=== PATIENT | female | born 2000 | race Caucasian/White ===

== ENCOUNTER 2025-01-31 15:20 | Emergency (ER) | payer SELFPAY ==
[2025-01-31] VITALS (29 sets, daily range): BP systolic 100–123; BP diastolic 72–90; PULSE 34–99; RESP 15; TEMP 36.4; O2SAT 86–100
--- NOTE | 2025-01-31 15:45 | DI.CT_ITS ---
Exam(s) CT ABDOMEN PELVIS W EXAM: CT ABDOMEN PELVIS W CLINICAL HISTORY: RUQ abd pain. TECHNIQUE: Imaging Protocol: Axial computed tomography images with coronal and sagittal reformatted images were created and reviewed CONTRAST MATERIAL: Intravenous: Omnipaque 350 Contrast volume:75 ml Oral: no COMPARISON: No exams were available for comparison FINDINGS: ABDOMEN and PELVIS: Lung Bases: No acute findings. Liver: Normal density. No suspicious mass. Gallbladder and biliary tract: No radiodense calculus. No wall thickening or pericholecystic fluid. No biliary dilation. Pancreas: Normal density. No abnormal calcifications or inflammatory process. No evidence of mass. Spleen: Normal. Kidneys: Normal size, contour and axis. No radiodense stones. No obstructive uropathy. No suspicious masses seen. Adrenal glands: No masses seen. Vasculature: Abdominal aorta non-dilated. Soft tissues: Unremarkable. Bladder: No gross wall thickening. No calculi.No focal mass. Bowel: No obstruction. No bowel wall thickening. Normal quantity of stool peer the appendix is not seen. There are surgical clips near the base of the cecum which may be the related to prior appendectomy. Surgical history correlation recommended. Peritoneal cavity: No ascites. No focal collection. No mesenteric inflammatory response. No free air. Bones: Unremarkable for age. Reproductive organs: Unremarkable. Lymph nodes: No pathologically enlarged lymph nodes. IMPRESSION:: No acute abnormality in the abdomen or pelvis. RADIATION DOSE DELIVERED: Total DLP DATA REPOSITORY: All CT scans at this facility are submitted to the National Radiology Data Registry (NRDR) Dose Index Registry (DIR) with the [employer] (ACR). RADIATION OPTIMIZATION: All CT scans at this facility use at least one of these dose optimization techniques: automated exposure control; mA and/or kV adjustment per patient size (includes targeted exams where dose is matched to clinical indication); or iterative reconstruction.
[2025-01-31 15:51] LABS: Glucose Negative (Negative)
--- NOTE | 2025-01-31 15:55 | W.ED.GENAD ---
Discharge Plan Disposition Patient Disposition: Home Condition: Stable Discharge Details Clinical Impression: Abdominal pain, RUQ Primary Care Provider: Lissa Nettles ED Provider: Aury Monroy Home Meds and New Rx's Prescriptions: New sucralfate [Carafate] 100 mg/mL suspension 10 ml PO QACHS PRN (Reason: stomach upset) 7 Days Qty: 414 0RF Rx Instructions: Take 10 mils before meals and at bedtime as needed for stomach upset. No Action L norgest/e.estradiol-e.estrad [Ashlyna] 0.15 mg-30 mcg (84)/10 mcg (7) tablets,dose pack,3 month 1 tab PO DAILY Discharge Instructions Instructions: Abdominal Pain, Adult ED, Nausea and Vomiting, Adult ED Additional Instructions: At this time no evidence of gallbladder infection, no gallstones no obstruction, no evidence of UTI. Please take the prescribed medication as directed. You may take [id number] antacid or similar. Follow up with primary care provider in 3-5 days. Return to ED sooner if any worsening abdominal pain, continuing to vomit despite medications, fever or chills vomiting blood or concerns. Thank you for allowing us to care for you today. Referrals: Lissa Nettles [Primary Care Provider, Medicine] - 3 days Discharge Data Discharge Date/Time-TO BE ENTERED AT DEPARTURE: 01/31/25 18:35 HPI General Mode of arrival: ambulatory. Date/Time Provider Initiated Documentation: 01/31/25 15:37. Limitations to Documentation: no limitations. Information obtained by: patient, RN notes reviewed and old records reviewed. HPI Narrative: 24-year-old female presents to the ER with a chief complaint of right upper quadrant abdominal pain which has been ongoing for at least a week. Was seen at [facility] probably 7 days ago and had labs done at that time which were normal. She reports continued pain, intermittent chills and nausea however she was given some nausea medication by [facility] which seems to be helping. Only surgical history is appendectomy. Denies any other associated symptoms or concerns. Patient last ate around 1:00pm. She reports she ate a sandwich. Related Data Home Medications ?Medication ?Instructions ?Recorded ?Confirmed L norgest/E estradiol-E estrad 1 tab PO DAILY 01/31/25 01/31/25 0.15 mg-30 mcg (84)/10 mcg(7) tabs,3mos (Ashlyna) sucralfate 100 mg/mL oral 10 ml PO QACHS PRN stomach upset 7 01/31/25 suspension (Carafate) days #414 mL Previous Rx's ?Medication ?Instructions ?Recorded sucralfate 100 mg/mL oral 10 ml PO QACHS PRN stomach upset 7 01/31/25 suspension (Carafate) days #414 mL Allergies Allergy/AdvReac Type Severity Reaction Status Date / Time No Known Allergies Allergy Unverified 01/31/25 15:26 General Stated Complaint: Abd Prob ALBERTO: 3 Review of Systems All systems reviewed & are unremarkable except as noted in HPI and below Gastrointestinal Gastrointestinal: Reports as per HPI, Reports abdominal pain, Reports nausea and Reports vomiting Exam Narrative Exam Narrative: Constitutional: Alert and oriented x3. Appears stated age. Normal body habitus. Head: Normocephalic, no trauma. Eyes: Pupils PERRL, Red reflex noted, EOM's intact. Eyelids symmetrical without lesions, discharge, or swelling. ENT: Bilateral TM's WNL, External ear normal to inspection, no mastoid TTP, swelling, or erythema, Nasal turbinates WNL, no nasal discharge. Normal dentition, Posterior pharynx WNL, no exudate. Chest: RRR, Normal S1, S2, distal pulses intact. Resp: Lungs clear to auscultation bilaterally, no wheezes, rales, or rhonchi. Abdomen: Right upper quadrant tenderness with palpation, positive Leos sign. Soft, non-distended, Normoactive bowel sounds all 4 quads. Musculoskeletal: Normal gait, Moves all 4 extremities without difficulty. Skin: No suspicious rashes or lesions. Capillary refill less than 2 sec. Neurologic: Cranial nerves II-XII intact. Alert and oriented x 3. Motor: No deficits noted. Sensory: Intact bilaterally all 4 extremities. Hematologic/Lymphatic: No ecchymosis, no lymphadenopathy. Course Vital Signs Vital signs: Vital Signs Temperature 36.4 C L 01/31/25 15:22 Pulse 93 H 01/31/25 15:22 Respiratory Rate 15 01/31/25 15:22 Blood Pressure 118/83 01/31/25 15:22 Pulse Oximetry 98 01/31/25 15:22 Temperature 36.4 C L 01/31/25 15:25 Temperature Source Temporal Artery Scan 01/31/25 15:25 Pulse 93 H 01/31/25 15:25 Respiratory Rate 15 01/31/25 15:25 Blood Pressure 118/83 01/31/25 15:25 Blood Pressure Position Sitting 01/31/25 15:25 Pulse Oximetry 98 01/31/25 15:25 Oxygen Delivery Method Room Air 01/31/25 15:25 Oxygen Flow Rate 0 01/31/25 15:25 Pain Level 5 01/31/25 15:25 Comment This morning was 7-8 on the pain scale 01/31/25 15:25 Lab/Test Results Lab/Test Results: Laboratory Tests Range/Units 01/31/25 15:33 Urine Color (Yellow) Yellow Urine Clarity (Clear) Clear Urine pH (5-8) 7.0 Ur Specific [place] (1.005-1.025) 1.025 Urine Protein (Neg-Trace) mg/dL Negative Urine Ketones (Negative) mg/dL Negative Urine Blood (Negative) Small H Urine Nitrite (Negative) Negative Urine Bilirubin (Negative) Negative Urine Urobilinogen (Up to 0.2) mg/dL 1.0 H Ur Leukocyte Esterase (Negative) Negative Urine Glucose (Negative) mg/dL Negative POC- Test(urine) Negative Medical Decision Making 24-year-old female presents to the ER with a chief complaint of right upper quadrant abdominal pain which has been ongoing for at least a week. Was seen at [facility] probably 7 days ago and had labs done at that time which were normal. She reports continued pain, intermittent chills and nausea however she was given some nausea medication by [facility] which seems to be helping. Only surgical history is appendectomy. Denies any other associated symptoms or concerns. Patient last ate around 1:00pm. She reports she ate a sandwich. Ordered including CBC CMP lipase urinalysis, urine POC is negative. CT abdomen pelvis with IV contrast. Differential diagnosis includes not limited to cholecystitis, gallstones, hepatitis, gastroenteritis, GERD. CT shows no acute abnormalities no free air no evidence of cholecystitis or obstruction. No leukocytosis, no left shift CMP within normal limits, no evidence of UTI. Will plan for discharge with a prescription for Carafate and Follow up. This text was generated using Is That Oddation system, please disregard any oddities of phrase or misspellings. Medical Records Medical records reviewed: Yes I reviewed the patient's medical records. Imaging Data Radiologic Study: Imaging: CT Scan Radiologist's impression: Exam(s) a CT:CT abdomen & pelvis w Exam(s) CT ABDOMEN PELVIS W EXAM: CT ABDOMEN PELVIS W CLINICAL HISTORY: RUQ abd pain. TECHNIQUE: Imaging Protocol: Axial computed tomography images with coronal and sagittal reformatted images were created and reviewed CONTRAST MATERIAL: Intravenous: Omnipaque 350 Contrast volume:75 ml Oral: no COMPARISON: No exams were available for comparison FINDINGS: ABDOMEN and PELVIS: Lung Bases: No acute findings. Liver: Normal density. No suspicious mass. Gallbladder and biliary tract: No radiodense calculus. No wall thickening or pericholecystic fluid. No biliary dilation. Pancreas: Normal density. No abnormal calcifications or inflammatory process. No evidence of mass. Spleen: Normal. Kidneys: Normal size, contour and axis. No radiodense stones. No obstructive uropathy. No suspicious masses seen. Adrenal glands: No masses seen. Vasculature: Abdominal aorta non-dilated. Soft tissues: Unremarkable. Bladder: No gross wall thickening. No calculi.No focal mass. Bowel: No obstruction. No bowel wall thickening. Normal quantity of stool peer the appendix is not seen. There are surgical clips near the base of the cecum which may be the related to prior appendectomy. Surgical history correlation recommended. Peritoneal cavity: No ascites. No focal collection. No mesenteric inflammatory response. No free air. Bones: Unremarkable for age. Reproductive organs: Unremarkable. Lymph nodes: No pathologically enlarged lymph nodes. IMPRESSION:: No acute abnormality in the abdomen or pelvis. Lab Data Lab results reviewed: Yes I reviewed the patient's lab results. Labs: Laboratory Tests Range/Units 01/31/25 01/31/25 15:33 16:06 WBC (4.4-10.8) 10^3/uL 6.29 RBC (3.93-5.22) 10^6/uL 5.00 Hgb (11.2-15.7) g/dL 15.1 Hct (36.0-46.0) % 45.2 MCV (80-95) fL 90 MCH (27.0-33.0) pg 30.2 MCHC (32.0-36.0) % 33.4 RDW (11.7-14.6) % 12.1 Plt Count (130-400) 10^3/uL 342 MPV (8.0-11.0) fL 9.0 Immature Gran % % 0.2 Neutrophils % % 58.0 Lymphocytes % % 34.0 Monocytes % % 6.4 Eosinophils % % 1.1 Basophils % % 0.3 Nucleated RBC % (0.0-0.3) % 0.0 Absolute Neutrophils (1.2-6.7) 10^3/uL 3.65 Absolute Lymphocytes (1.2-3.4) 10^3/uL 2.14 Absolute Monocytes (0.1-0.8) 10^3/uL 0.40 Absolute Eosinophils (0.0-0.7) 10^3/uL 0.07 Absolute Basophils (0.0-0.2) 10^3/uL 0.02 Sodium (136-145) mmol/L 143 Potassium (3.5-5.1) mmol/L 3.8 Chloride (98-107) mmol/L 106 Carbon Dioxide (21.0-32.0) mmol/L 28.6 Anion Gap (3-11) mmol/L 8.4 BUN (7-18) mg/dL 10 Creatinine (0.55-1.02) mg/dL 0.8 Est GFR (CKD-EPI 2020) (mL/min/1.73m2) 106.77 Glucose (74-106) mg/dL 92 Calcium (8.5-10.1) mg/dL 9.3 Magnesium (1.8-2.4) mg/dL 2.2 Total Bilirubin (0.2-1.0) mg/dL 0.2 AST (15-37) U/L 17 ALT (14-59) U/L 23 Alkaline Phosphatase (46-116) U/L 57 Total Protein (6.4-8.2) g/dL 7.8 Albumin (3.4-5.0) g/dL 4.0 Lipase (<78) U/L 39 Urine Color (Yellow) Yellow Urine Clarity (Clear) Clear Urine pH (5-8) 7.0 Ur Specific [place] (1.005-1.025) 1.025 Urine Protein (Neg-Trace) mg/dL Negative Urine Ketones (Negative) mg/dL Negative Urine Blood (Negative) Small H Urine Nitrite (Negative) Negative Urine Bilirubin (Negative) Negative Urine Urobilinogen (Up to 0.2) mg/dL 1.0 H Ur Leukocyte Esterase (Negative) Negative Urine RBC (0-2) HPF 3-5 H Urine WBC (0-5) HPF Negative Ur Epithelial Cells (Negative) HPF Rare Urine Crystals (Negative) HPF Negative Urine Bacteria (Negative) HPF Few Urine Casts (Negative) LPF Negative Urine Mucus (Negative) Negative Ur Culture Indicated? No Urine Glucose (Negative) mg/dL Negative PFSH All Active Problems (Updated 01/31/25 @ 17:44 by Aury Monroy NP) Abdominal pain, RUQ (Acute) Social History Smoking/Tobacco Use Status: Never Smoking risk assessment performed?: Yes Alcohol Intake: current Alcohol Intake frequency: holidays/special occasions only Drug use: Never Substance use type: does not use Housing: apartment
[2025-01-31] MEDS: Ondansetron 4 MG/2 ML VIAL 2 MG IVP (16:00)
[2025-01-31 16:01] LABS: C & S Indicated? No; WBC Negative HPF (0-5)
[2025-01-31] MEDS: MORPHine 10 MG/ML VIAL 2 MG IVP (16:01)
[2025-01-31 16:19] LABS: Abs Immature Grans 0.01 10^3/uL (0.0-0.06); HCT 45.2 % (36.0-46.0); HGB 15.1 g/dL (11.2-15.7); Immature Grans % 0.2 %; MCH 30.2 pg (27.0-33.0); MCHC 33.4 % (32.0-36.0); MCV 90 fL (80-95); MPV 9.0 fL (8.0-11.0); Platelet Count 342 10^3/uL (130-400); RBC 5.00 10^6/uL (3.93-5.22); RDW 12.1 % (11.7-14.6); RDW-SD 40.1 fL; WBC 6.29 10^3/uL (4.4-10.8)
[2025-01-31] MEDS: Normal Saline - Diluent 50 ML VIAL IJ (16:32)
[2025-01-31] MEDS: Omnipaque 350 MG/ML 100 ML BTL IJ (16:32)
[2025-01-31] MEDS: Normal Saline Flush 10 ML SYR IVP (16:35)
[2025-01-31 16:41] LABS: ALT 23 U/L (14-59); AST 17 U/L (15-37); Albumin 4.0 g/dL (3.4-5.0); Alkaline Phosphatase 57 U/L (46-116); Anion Gap 8.4 mmol/L (3-11); BUN 10 mg/dL (7-18); Bilirubin, Total 0.2 mg/dL (0.2-1.0); CO2 28.6 mmol/L (21.0-32.0); Calcium 9.3 mg/dL (8.5-10.1); Chloride 106 mmol/L (98-107); Estimated GFR 106.77 (mL/min/1.73m2); Glucose 92 mg/dL (74-106); Lipase 39 U/L (<78); Magnesium 2.2 mg/dL (1.8-2.4); Potassium 3.8 mmol/L (3.5-5.1); Sodium 143 mmol/L (136-145); Total Protein 7.8 g/dL (6.4-8.2)
[2025-02-01 00:04] VITALS: PULSE 73; O2SAT 97
== END 2025-01-31 18:35 | disposition home or self-care (01) ==
PROVIDERS: Emergency Provider Registered Nurse Emergency; PCP Emergency Medicine
DX: R10.11 Right upper quadrant pain (principal); R11.0 Nausea; Z90.49 Acquired absence of other specified parts of digestive tract
CPT/HCPCS: 99285; 99284; 81025; 96374; 96375; 80053; 83690; 74177; 81003; 81015; 83735; 85025; J2270; J2405; J3490